=== PATIENT | male | born 1965 ===

== ENCOUNTER → 2018-07-09 20:57 | Outpatient (ROUT) | payer SELFPAY ==
[2018-07-10 20:34] LABS: HIV 1 and 2 Antibody NEGATIVE (NEGATIVE)
== END ==
PROVIDERS: Visit Provider Family Medicine
DX: Z11.3 Encounter for screening for infections with a predominantly sexual mode of transmission (principal); Z11.4 Encounter for screening for human immunodeficiency virus [HIV]
CPT/HCPCS: 36415; 86703